=== PATIENT | female | born 2000 | race African-American/Black ===

== ENCOUNTER 2025-06-15 09:43 | Emergency (ER) | payer BC ==
[~2025-06-15] VITALS: Ht 157.5 cm; Wt 86.0 kg
[2025-06-15 09:45] VITALS: O2SAT 100
[2025-06-15] MEDS: SODIUM CHLORIDE 0.9% 1,000 ML IV ONE (10:00)
[2025-06-15 10:25] LABS: BASOPHILS % 1.3 % (0.0-2.0); EOSINOPHILS % 0.7 % (0.0-5.0); HEMATOCRIT. 39.3 % (36.0-48.0); HEMOGLOBIN. 12.8 g/dL (12.0-16.0); LYMPHOCYTES % 26.6 % (20.0-50.0); MEAN PLATELET VOLUME 8.8 fl (7.4-10.4); MONOCYTES % 4.6 % (2.0-8.0); NEUTROPHILS % 66.8 % (40.0-76.0); PLATELET 420 x1000/uL (130-400); RED BLOOD CELL COUNT 4.60 mill/uL (4.2-5.4); RED CELL DISTRIBUTION WIDTH 13.4 % (11.6-14.6)
[2025-06-15 10:39] LABS: CREATININE 0.8 mg/dL (0.6-1.0); UREA NITROGEN BLOOD 9 mg/dL (9-23)
[2025-06-15 10:42] LABS: HCG SCREEN NEGATIVE; TROPONIN I HIGH SENSITIVITY < 4 ng/L (3.0-34)
[2025-06-15 12:14] VITALS: BP 120/88; PULSE 102; RESP 14; TEMP 36.9; O2SAT 100
== END 2025-06-15 12:16 | disposition home or self-care (01) ==
LOC: ER 10:11
DX: R00.2 Palpitations (principal); J45.909 Unspecified asthma, uncomplicated
CPT/HCPCS: 99284; 71045; 80048; 84703; 85025; 84484; 36415; J7030